=== PATIENT | male | born 1985 | race Caucasian/White ===

== ENCOUNTER 2024-09-03 15:22 | Emergency (ER) | payer OTHER, SELFPAY ==
[2024-09-03 15:40] VITALS: BP 131/79; PULSE 77; RESP 16; TEMP 37.4; O2SAT 100
--- NOTE | 2024-09-03 15:41 | ED_ITS ---
HPI - URI/Sore Throat General Chief Complaint: Upper Respiratory Infection Stated Complaint: Sore Throat/Headache/Body Aches/Fever Time Seen by Provider: 09/03/24 15:41 Source: patient and RN notes reviewed Mode of arrival: ambulatory Limitations: no limitations History of Present Illness HPI Narrative: 39-year-old male presented for complaint of cough, fever, nasal congestion. Onset yesterday. Patient finished [employer] one week ago for sinusitis, following Covid 3 weeks ago. and son with similar symptoms. Denies sob, wheezing, n/v/d. MD elicited complaint: cough Related Data Home Medications ?Medication ?Instructions ?Recorded ?Confirmed ?Last Taken ?Type montelukast 10 mg tablet mg 09/03/24 Unknown History Allergies Allergy/AdvReac Type Severity Reaction Status Date / Time No Known Allergies Allergy Unverified 09/03/24 15:27 Review of Systems Review of Systems: CONSTITUTIONAL: Endorses malaise, chills, sweats, fever EYES: Denies visual changes, redness, or discharge ENT: Reports rhinorrhea, congestion, denies sinus pain, otalgia, sore throat CARDIOVASCULAR: Denies chest pain, palpitations, edema RESPIRATORY: Reports cough, post nasal drainage. Denies dyspnea GASTROINTESTINAL: Denies abdominal pain, nausea, vomiting, diarrhea MUSCULOSKELETAL: Endorses myalgia NEUROLOGIC: Denies headache Exam Narrative: GENERAL: well-appearing, nontoxic no acute distress. HEAD: Normocephalic EYES: PERRLA, conjunctivae clear ENT: Mucous membranes moist. TMs pearly sheikh with dull light reflex bilaterally; no tragal tenderness. Oropharynxmildly erythematous without lesions or exudate, no drooling, no hoarseness, no trismus, uvula midline. No tripod positioning, muffled voice, soft palate or pharyngeal wall bulging NECK: Supple. No lymphadenopathy CHEST: Clear to auscultation, breath sounds equal. No wheezing, rhonchi, rales, or stridor. No respiratory distress, speaks in full sentences. HEART: Regular rate and rhythm. No murmur heard. SKIN: Warm, dry, no rash. NEURO: Alert and oriented x3. PSYCH: Normal mood and affect Course Course Emergency Course: Patient is aware of diagnosis, understands and agrees to treatment plan. Anticipatory guidance given. Patient agrees to follow-up as directed and is aware of reasons to seek care at the emergency department. Portions of this record may have been created with voice recognition software Level of Care: Express Care Visit Vital Signs Vital signs: Vital Signs Temperature 99.4 F 09/03/24 15:40 Pulse Rate 77 09/03/24 15:40 Respiratory Rate 16 09/03/24 15:40 Blood Pressure 131/79 09/03/24 15:40 Pulse Oximetry 100 09/03/24 15:40 Oxygen Delivery Room Air 09/03/24 15:40 Temperature 99.4 F 09/03/24 15:40 Pulse Rate 77 09/03/24 15:40 Respiratory Rate 16 09/03/24 15:40 Blood Pressure 131/79 09/03/24 15:40 Pulse Oximetry 100 09/03/24 15:40 Oxygen Delivery Room Air 09/03/24 15:40 reviewed MDM - URI/Sore Throat MDM Narrative Medical decision making narrative: Neg flu and covid. Discussed physical exam findings. Advised supportive measures and signs/symptoms to go to the ER. Pt is appropriate for outpt treatment and f/u. Differential Diagnosis Differential diagnosis: Likely upper respiratory infection, sinusitis and viral infection Lab Data Labs: Lab Results 09/03/24 Range/Units 16:16 POC Influenza A Ag Negative (Negative) POC Influenza B Ag Negative (Negative) POC SARS CoV-2 Ag Negative (Negative) POC Grp A Strep Screen Negative (Negative) Discharge Plan Discharge Clinical Impression: Viral infection Patient Disposition: Home, Self-Care Condition: Stable Instructions: Antibiotic Form, Influenza (ED) Additional Instructions: Flu and Covid negative. It may be too early to detect the virus, therefore we recommend retesting at home in 1-2 days Continue to follow general precautions: frequent handwashing, wear a mask, isolate/social distance, and avoid crowds if you have a fever. You must be fever free for 24 hours without the use of fever reducing medication (Tylenol/ibuprofen) before returning to work/school/crowds. Rest. Drink plenty of fluids. Tylenol 1000mg every 8 hours as needed for pain/fever Recommend Flonase spray and Zyrtec (or Claritin/Carmina) for sinus pressure/congestion over the counter Cough syrup may cause drowsiness; avoid driving or take it at night time. Follow up with your primary care provider as needed Go to the ER for worsening symptoms or concerns Patient Language: Serbian Prescriptions: No Action montelukast 10 mg tablet Follow-up/Referrals: PHYSICIAN NOT ON STAFF,NONSTAFF [Primary Care Provider] - Time of Disposition: 16:19
[2024-09-03 16:19] LABS: EDCOVIDSCREEN Negative (Negative); EDINFLUASCREEN Negative (Negative); EDINFLUBSCREEN Negative (Negative); EDSTREPNEGPOS1 Negative (Negative)
== END 2024-09-03 16:24 | disposition home or self-care (01) ==
PROVIDERS: Emergency Provider Nurse Practitioner Family
DX: B34.9 Viral infection, unspecified (principal); Z20.822 Contact with and (suspected) exposure to COVID-19
CPT/HCPCS: 87081; 87426; 87804; 87880; 99203; G0463